=== PATIENT | female | born 1985 | race Caucasian/White ===

== ENCOUNTER 2021-12-25 01:22 | Emergency (ER) | payer OTHER ==
[2021-12-25] MEDS ORDERED: ONDANSETRON ODT 4 MG TABLET TL STA (01:30)
[2021-12-25 02:21] LABS: BASOPHILS % (AUTO) 0.3 %; EOSINOPHILS # (AUTO) 0.1 10^3/uL (0.0-0.7); HCT - HEMATOCRIT 39.1 % (37.0-47.0); HGB - HEMOGLOBIN 13.1 g/dL (12.0-16.0); LYMPHOCYTES # (AUTO) 2.2 10^3/uL (1.5-3.5); LYMPHOCYTES % (AUTO) 16.4 %; MEAN CORPUSCULAR HGB CONC 33.5 g/dL (32.0-36.0); MEAN CORPUSCULAR VOLUME 89.5 fL (81.0-99.0); MEAN PLATELET VOLUME 10.3 fL (7.9-10.8); MONOCYTES % (AUTO) 7.2 %; NEUTROPHILS # (AUTO) 9.9 10^3/uL (1.5-6.6); NEUTROPHILS % (AUTO) 74.8 %; PLT - PLATELET COUNT 351 10^3/uL (130-450); RED BLOOD COUNT 4.37 10^6/uL (4.20-5.40); RED CELL DISTRIBUTION WIDTH 12.8 % (12.0-15.0); WHITE BLOOD COUNT 13.2 x10^3/uL (4.8-10.8)
[2021-12-25] MEDS ORDERED: MORPHINE 2 MG/ML CARPUJECT IVP STA (02:30)
[2021-12-25 02:35] LABS: ALBUMIN 4.3 g/dL (3.2-5.5); ALBUMIN/GLOBULIN RATIO 1.2 (1.0-2.2); BILIRUBIN,TOTAL 0.9 mg/dL (0.2-1.0); CALCIUM 9.4 mg/dL (8.5-10.3); CREATININE 0.7 mg/dL (0.4-1.0); POTASSIUM 3.2 mmol/L (3.5-5.0); TOTAL PROTEIN 7.9 g/dL (6.7-8.2)
[2021-12-25] MEDS ORDERED: IOVERSOL 320 100 ML VIAL IVP ONE ×2 (03:10→04:34)
--- NOTE | 2021-12-25 03:56 | ED Physician Documentation ---
History of Present Illness - Stated complaint Stated Complaint: ABD PX - Chief complaint Chief Complaint: Abd Pain - History obtained from History obtained from: Patient - Additonal information Additional information: The patient comes to the emergency department chief complaint of abdominal bloating and pain in her right lower quadrant in her epigastrium that began this evening. Patient states she has chronic constipation and that her last bowel movement was a few days ago but was very small. She does not feel like she can pass gas right now. The patient states that she is been burping and is felt some nausea but no vomiting. The patient has never had surgery on her abdomen. She denies any fevers or chills. No other complaints at this time. Review of Systems Ten Systems: 10 systems reviewed and negative Constitutional: reports: Reviewed and negative Eyes: reports: Reviewed and negative Ears: reports: Reviewed and negative Nose: reports: Reviewed and negative Throat: reports: Reviewed and negative Cardiac: reports: Reviewed and negative Respiratory: reports: Reviewed and negative GI: reports: Abdominal Pain, Nausea, Constipation : reports: Reviewed and negative Skin: reports: Reviewed and negative Musculoskeletal: reports: Reviewed and negative Neurologic: reports: Reviewed and negative Psychiatric: reports: Reviewed and negative Endocrine: reports: Reviewed and negative Immunocompromised: reports: Reviewed and negative PD PAST MEDICAL HISTORY - Present Medications Home Medications: Ambulatory Orders Medication Instructions Recorded Confirmed Docusate Sodium [Dulcolax Stool 100 mg PO BID PRN #20 cap 12/25/21 Softener] Peg 3350/Na Sulf,Bicarb,Cl/KCl 4,000 ml PO ONCE 1 Days #1 each 12/25/21 [Golytely] - Allergies Allergies/Adverse Reactions: Allergies Allergy/AdvReac Type Severity Reaction Status Date / Time No Known Drug Allergies Allergy Verified 12/25/21 01:30 PD ED PE NORMAL - Vitals Vital signs reviewed: Yes - General General: Alert and oriented X 3, No acute distress, Well developed/nourished - HEENT HEENT: Atraumatic, PERRL, EOMI, Moist mucous membranes - Cardiac Cardiac: RRR, No murmur, Strong equal pulses - Respiratory Respiratory: No respiratory distress, Clear bilaterally - Abdomen Abdomen: Soft, Other (Moderate distention, abdomen is soft, diffusely tender but worse in right lower quadrant and epigastrium. No rebound or guarding) - Derm Derm: Warm and dry - Extremities Extremities: No deformity - Neuro Neuro: Alert and oriented X 3 - Psych Psych: Normal mood, Normal affect Results - Vitals Vitals: Vital Signs - 24 hr 12/25/21 12/25/21 01:25 01:30 Temperature 36.3 C L 36.9 C Heart Rate 76 70 Respiratory 17 18 Rate Blood Pressure 132/80 H 154/74 H O2 Saturation 99 100 Oxygen O2 Source Room air - Labs Labs: Laboratory Tests 12/25/21 12/25/21 12/25/21 02:04 02:04 02:04 WBC 13.2 H RBC 4.37 Hgb 13.1 Hct 39.1 MCV 89.5 MCH 30.0 MCHC 33.5 RDW 12.8 Plt Count 351 MPV 10.3 Neut # (Auto) 9.9 H Lymph # (Auto) 2.2 Wise # (Auto) 1.0 Eos # (Auto) 0.1 Baso # (Auto) 0.0 Absolute Nucleated RBC 0.00 Nucleated RBC % 0.0 Sodium 138 Potassium 3.2 L Chloride 102 Carbon Dioxide 23 Anion Gap 13.0 BUN 10 Creatinine 0.7 Estimated GFR (MDRD) 95 Glucose 113 H Calcium 9.4 Total Bilirubin 0.9 AST 25 ALT 24 Alkaline Phosphatase 71 Total Protein 7.9 Albumin 4.3 Globulin 3.6 Albumin/Globulin Ratio 1.2 Lipase 30 Serum HCG, Qual NEGATIVE - Rads (name of study) CT abdomen and pelvis with IV contrast Radiology: Final report received, EMP read indepedently, See rad report (Constipation otherwise negative) PD MEDICAL DECISION MAKING - ED course Complexity details: reviewed results, re-evaluated patient, considered differential, d/w patient ED course: The patient was treated symptomatically with morphine and worked up with labs, then CT scan of the abdomen and pelvis. The patient's labs were unremarkable and CT scan of the abdomen and pelvis showed constipation, but no other acute abnormalities. The appendix was normal. I have discussed with the patient symptomatic management. She is left her Dulcolax at home by accident a good [employer]aru that she is on heavy narcotic regimen by her chronic pain specialist, it is important that she stays on stool softener to mitigate the side effect of constipation. I have given her a bottle of magnesium citrate here. The patient is advised to get an [id number] enema and try this at home. We have discussed follow-up and the usual indications for return. Departure - Departure Disposition: 01 Home, Self Care Clinical Impression: Constipation Qualifiers: Constipation type: drug induced constipation Qualified Code(s): K59.03 - Drug induced constipation Condition: Stable Instructions: ED Constipation Prescriptions: Docusate Sodium [Dulcolax Stool Softener] 100 mg PO BID PRN #20 cap PRN Reason: Constipation Peg 3350/Na Sulf,Bicarb,Cl/KCl [Golytely] 4,000 ml PO ONCE 1 Days #1 each
[2021-12-25 04:00] LABS: HCG,QUALITATIVE BLOOD NEGATIVE
[2021-12-25] MEDS ORDERED: MAGNESIUM CITRATE 296 ML BOTTLE PO STA (05:07)
[2021-12-25 05:58] VITALS: BP 118/72
--- NOTE | 2021-12-25 08:33 | CT Report ---
PROCEDURE: Abdomen/Pelvis W INDICATIONS: RLQ abd pain, nausea, no BM/gas CONTRAST: 100 mL 320 ml: 100 TECHNIQUE: After the administration of intravenous contrast, 5 mm thick sections acquired from the diaphragms to the symphysis. 5 mm thick coronal and sagittal reformats were acquired. For radiation dose reducti on, the following was used: automated exposure control, adjustment of mA and/or kV according to js ent size. COMPARISON: None. FINDINGS: Image quality: Excellent. ABDOMEN: Lung bases: Lung bases are clear. Heart size is normal. Solid organs: Liver and spleen are normal in size and enhancement. Gallbladder normal. Biliary sys tem is non dilated. Pancreas enhances normally. No adrenal nodules. Kidneys demonstrate normal siz e and enhancement, without hydronephrosis. Peritoneum and bowel: Bowel loops demonstrate normal wall thickness and caliber. No free fluid or a ir. Nodes and vessels: No retroperitoneal or mesenteric adenopathy by size criteria. Aorta and inferior vena cava are normal in size. Miscellaneous: No ventral hernias. PELVIS: Genitourinary: Bladder wall thickness is normal. Miscellaneous: No inguinal hernias or adenopathy. Bones: No suspicious bony lesions. No vertebral body compression fractures. IMPRESSION: No acute finding in the abdomen or pelvis. Enhancing right adnexal cyst could represent hemorrhagic or corpus luteum cyst. Trace free right adne xal fluid is within physiologic normal limits. No findings of appendicitis. Large volume of formed stool in the colon could indicate constipation. No significant change from preliminary report. Reviewed by: Clint Sahu MD on 12/25/2021 8:32 AM [facility] Approved by: Clint Sahu MD on 12/25/2021 8:32 AM PST Station ID: [id number]
== END 2021-12-25 06:01 | disposition home or self-care (01) ==
LOC: ED 01:22
DX: K59.03 Drug induced constipation (principal)
CPT/HCPCS: 36415; 74177; 80053; 83690; 84703; 85025; 96374; 99283; 99284; A9270; Q0162; Q9967